=== PATIENT | female | born 1935 | race Caucasian/White ===

== ENCOUNTER → 2016-08-31 | Outpatient (CLI) | payer BC ==
[~2016-08-31] MED LIST: ACET-1256 PO; ACET325T82 PO; ALBINS/ INH; ALCA0.25 OPB; ALUM-76 PO; AMLO-114 PO; ASPI1TAB83 PO; BACTROBAN; BENZ1CAP90 PO; BISA10SU7 PR; BUDE1SUS INH; CALC500C3 PO; CHLL; COEN100C7 PO; DEXL60CA4 PO; DEXTLIQ; DEXTSYP29 PO; DICL1GEL34 TOP; FERR325T51 PO; FEXO1TAB49 PO; FURO-85 PO; GLIP-197 PO; GLIP-199 PO; GLYCDRO6 OPB; IMD/2 PO; INSDGI SC; IPRA1AER2 INH; METF500T PO; METO-217 PO; METO25TA3 PO; MISC4CAP PO; MOMLX; MONT1TAB3 PO; MRP5 PO; OLOP1DRO OPB; OXYC7.5T62 PO; POTA10CA28 PO; PRAMIPEXOLE PO; PSYL55.43 PO; RANI300T2 PO; ROSU5TAB PO; SENN8.6T9 PO; SERT50TA PO; SITA50TA3 PO; SPIR25TA PO; SYMIN INH; TRAM-10 PO; VALS320T PO; ZNTT/150 PO; [UNRECOGNIZED DRUG - CODE] OPB; [UNRECOGNIZED DRUG - CODE] PR; [UNRECOGNIZED DRUG - OTHER]; nystatin powder
[2016-08-31 10:13] LABS: HEMATOCRIT 39.3 % (37-47); MEAN CELL VOLUME 89.9 fL (80-100); MEAN CORPUSCULAR HEMOGLOBIN 28.6 pg (25-34); MEAN CORPUSCULAR HGB CONC 31.8 g/dl (32-36); PLATELET COUNT 305 K/uL (130-400); RED BLOOD COUNT 4.37 M/uL (4.2-5.4); WHITE BLOOD COUNT 7.86 K/uL (4.8-10.8)
== END | disposition home or self-care (01) ==
LOC: C.LABFOXDH 10:00
PROVIDERS: ATTEND Internal Medicine
DX: D53.9 Nutritional anemia, unspecified (principal)

== ENCOUNTER → 2016-11-06 | Outpatient (CLI) | payer BC ==
[2016-11-06 08:15] LABS: BASO % 0.4 %; BASO ABS # 0.04 K/uL (0-0.2); COMPLETE YES; EOS % 4.7 %; HEMATOCRIT 38.1 % (37-47); IG% 0.3 %; LYMPH % 13.4 %; LYMPH ABS # 1.31 K/uL (1.2-3.4); MEAN CELL VOLUME 90.9 fL (80-100); MEAN CORPUSCULAR HEMOGLOBIN 29.1 pg (25-34); MEAN PLATELET VOLUME 9.8 fL (7.4-10.4); MONO % 13.5 %; NEUT % 67.7 %; PLATELET COUNT 232 K/uL (130-400); RED BLOOD COUNT 4.19 M/uL (4.2-5.4); WHITE BLOOD COUNT 9.76 K/uL (4.8-10.8)
[2016-11-06 08:24] LABS: ALT/SGPT 18 U/L (12-78); BLOOD UREA NITROGEN 13 mg/dl (7-18); BUN/CREATININE RATIO 13.3 (10-20); CALCIUM 9.1 mg/dl (8.5-10.1); CARBON DIOXIDE 24 mmol/L (21-32); CHLORIDE 105 mmol/L (98-107); GLUCOSE 192 mg/dl (70-99); POTASSIUM 4.5 mmol/L (3.5-5.1); SODIUM 140 mmol/L (136-145)
[2016-11-06 08:26] LABS: ALB/GLOB RATIO 0.9 (0.9-2); ALKALINE PHOSPHATASE 90 U/L (45-117); AST/SGOT 9 U/L (15-37)
== END | disposition home or self-care (01) ==
LOC: C.LABFOXDH 07:58
PROVIDERS: ATTEND Internal Medicine
DX: R10.84 Generalized abdominal pain (principal)

== ENCOUNTER → 2016-11-26 | Outpatient (CLI) | payer BC ==
[~2016-11-26] MED LIST changes: +OPTIRAY 320 IV PRN
--- NOTE | 2016-11-26 14:10 | DIAGNOSTIC IMAGING REPORT ---
CT OF THE ABDOMEN AND PELVIS WITH CONTRAST CLINICAL HISTORY: Bilateral lower quadrant abdominal pain. COMPARISON STUDY: CT of the abdomen and pelvis January 08, 2012 and renal ultrasound January 07, 2015. TECHNIQUE: Following IV administration of 90 mL of Optiray-320, axial images of the abdomen and pelvis were obtained from the lung bases to the proximal femurs. Images were reviewed in the axial, sagittal, and coronal planes. IV contrast was administered without complication. Oral contrast was administered. CT DOSE: 1699.73 mGy.cm FINDINGS: The visualized portions of the lower chest demonstrate moderate cardiomegaly and extensive coronary artery calcification. There is a small hiatal hernia. There is no pneumatosis, free air or portal venous gas. There is no biliary ductal dilatation status post cholecystectomy. Several bilateral renal cysts are noted. A few subcentimeter lesions are too small to characterize. There is no bowel obstruction. There is sigmoid diverticulosis. There is mild infiltration adjacent to the mid sigmoid colon. There is no free air or abscess. A small fat-containing umbilical hernia is noted. There is a suspected 4.4 cm fundal fibroid within the uterus. This is unchanged since exam of February 18, 2007. There is no lymphadenopathy. No suspicious skeletal lesions are identified. IMPRESSION: 1. Mild acute sigmoid diverticulitis. No free air or abscess. 2. Small hiatal hernia. 3. No change in a suspected 4.4 cm fundal fibroid. Electronically signed by: Ari Wade M.D. 11/26/2016 2:07 PM Dictated Date/Time: 11/26/2016 1:53 PM
== END | disposition home or self-care (01) ==
LOC: C.CTS 12:31
PROVIDERS: ATTEND Physician Assistant
DX: R10.31 Right lower quadrant pain (principal); R10.32 Left lower quadrant pain; K44.9 Diaphragmatic hernia without obstruction or gangrene

== ENCOUNTER → 2016-11-27 | Outpatient (CLI) | payer BC ==
[~2016-11-27] MED LIST changes: -OPTIRAY 320 IV PRN
[2016-11-27 12:34] LABS: BLOOD UREA NITROGEN 23 mg/dl (7-18); CALCIUM 9.3 mg/dl (8.5-10.1); CARBON DIOXIDE 21 mmol/L (21-32); CHLORIDE 104 mmol/L (98-107); GLUCOSE 164 mg/dl (70-99); POTASSIUM 4.8 mmol/L (3.5-5.1); SODIUM 135 mmol/L (136-145)
== END | disposition home or self-care (01) ==
LOC: C.LABFOXDH 11:58
PROVIDERS: ATTEND Nurse Practitioner Family
DX: E11.9 Type 2 diabetes mellitus without complications (principal)

== ENCOUNTER → 2017-02-08 | Day surgery (SDC) | payer BC ==
[2017-01-21 12:49] VITALS: Ht 152.4 cm; Wt 117.1 kg
--- NOTE | 2017-01-22 08:55 | PAT Medication Instructions ---
Service Date Jan 22, 2017. Current Home Medication List Acetaminophen (Tylenol), 500 MG PO QID Albuterol Sulf (Proventil 0.083% 2.5MG/3ML), 1 AMP INH QID PRN for Wheezing Alum & Mag Hydrox-Simethicone (Rulox), 30 ML PO DAILY PRN for Dyspepsia Amlodipine (Norvasc), 10 MG PO QAM Aspirin (Aspirin), 81 MG PO QAM Budesonide (Inhalation) (Pulmicort), 1 VIAL INH BID Budesonide/Formoterol Fumarate (Symbicort 160-4.5 Mcg/Act), 2 PUFFS INH BID Calcium Carbonate (Antacid) (Tums), 500 MG PO Q4H PRN for Indigestion Coenzyme Q10 (Ubidecarenone) (Coq10), 1 CAP PO QAM Dexlansoprazole (Dexilant), 60 MG PO QAM Dextromethorphan-Guaifenesin (Siltussin-Dm), 10 ML PO TID PRN for Cough Diclofenac Sodium (Topical) (Diclofenac Sodium), 4 GM TOP TID Ferrous Sulfate (Iron Supplement), 1 TAB PO BID Fexofenadine Hcl (Christine Allergy), 1 TAB PO QAM Furosemide (Lasix), 20 MG PO QAM Glipizide (Glipizide Er), 1 TAB PO BID Insulin Glargine (Lantus), 50 UNITS SC HS Metoprolol Succinate (Toprol Xl), 50 MG PO QAM Montelukast Sodium (Singulair), 10 MG PO QPM Olopatadine HCl (Pazeo), 1 DROP OPB QAM Potassium Chloride (Micro-K Ext Rel), 10 MEQ PO QPM Pramipexole Dihydrochloride (Pramipexole Dihydrochlori), 1 TAB PO QPM Probiotic Product (Align), 4 MG PO QAM Psyllium (Metamucil Powder), 1 PACK PO QAM Ranitidine (Zantac), 150 MG PO BID Rosuvastatin Calcium (Crestor), 5 MG PO QAM Sertraline (Zoloft), 75 MG PO QPM Sitagliptin (Januvia), 50 MG PO QPM Spironolactone (Aldactone), 25 MG PO QAM Tramadol (Ultram), 50 MG PO Q6H PRN for Pain Valsartan (Diovan), 320 MG PO QAM Medication Instructions For Your Scheduled Surgery Aspirin (Aspirin), 81 MG PO QAM (check with surgeon for instructions) Olopatadine HCl (Pazeo), 1 DROP OPB QAM (check with surgeon for instructions) - Hold the following medications 7 days prior to surgery: Coenzyme Q10 (Ubidecarenone) (Coq10), 1 CAP PO QAM - Hold the following medications evening prior to surgery: Pramipexole Dihydrochloride (Pramipexole Dihydrochlori), 1 TAB PO QPM - Hold the following medications the morning of surgery: Spironolactone (Aldactone), 25 MG PO QAM Probiotic Product (Align), 4 MG PO QAM Psyllium (Metamucil Powder), 1 PACK PO QAM Glipizide (Glipizide Er), 1 TAB PO BID Fexofenadine Hcl (Christine Allergy), 1 TAB PO QAM Furosemide (Lasix), 20 MG PO QAM Ferrous Sulfate (Iron Supplement), 1 TAB PO BID Diclofenac Sodium (Topical) (Diclofenac Sodium), 4 GM TOP TID Dextromethorphan-Guaifenesin (Siltussin-Dm), 10 ML PO TID PRN for Cough Calcium Carbonate (Antacid) (Tums), 500 MG PO Q4H PRN for Indigestion Alum & Mag Hydrox-Simethicone (Rulox), 30 ML PO DAILY PRN for Dyspepsia Valsartan (Diovan), 320 MG PO QAM - Take the following medications the morning of surgery with a sip of water: Tramadol (Ultram), 50 MG PO Q6H PRN for Pain (can take up to four hours prior to surgery if needed) Rosuvastatin Calcium (Crestor), 5 MG PO QAM Ranitidine (Zantac), 150 MG PO BID Metoprolol Succinate (Toprol Xl), 50 MG PO QAM Dexlansoprazole (Dexilant), 60 MG PO QAM Budesonide (Inhalation) (Pulmicort), 1 VIAL INH BID Budesonide/Formoterol Fumarate (Symbicort 160-4.5 Mcg/Act), 2 PUFFS INH BID Amlodipine (Norvasc), 10 MG PO QAM Acetaminophen (Tylenol), 500 MG PO QID (if needed) Albuterol Sulf (Proventil 0.083% 2.5MG/3ML), 1 AMP INH QID PRN for Wheezing ( if needed) - Take the following medications as scheduled the night before surgery: Tramadol (Ultram), 50 MG PO Q6H PRN for Pain Sertraline (Zoloft), 75 MG PO QPM Sitagliptin (Januvia), 50 MG PO QPM Ranitidine (Zantac), 150 MG PO BID Potassium Chloride (Micro-K Ext Rel), 10 MEQ PO QPM Montelukast Sodium (Singulair), 10 MG PO QPM Glipizide (Glipizide Er), 1 TAB PO BID Insulin Glargine (Lantus), 50 UNITS SC HS Ferrous Sulfate (Iron Supplement), 1 TAB PO BID Diclofenac Sodium (Topical) (Diclofenac Sodium), 4 GM TOP TID Dextromethorphan-Guaifenesin (Siltussin-Dm), 10 ML PO TID PRN for Cough Calcium Carbonate (Antacid) (Tums), 500 MG PO Q4H PRN for Indigestion Budesonide (Inhalation) (Pulmicort), 1 VIAL INH BID Budesonide/Formoterol Fumarate (Symbicort 160-4.5 Mcg/Act), 2 PUFFS INH BID Acetaminophen (Tylenol), 500 MG PO QID Albuterol Sulf (Proventil 0.083% 2.5MG/3ML), 1 AMP INH QID PRN for Wheezing Alum & Mag Hydrox-Simethicone (Rulox), 30 ML PO DAILY PRN for Dyspepsia If you have any questions please call us at [phone] or [phone] ( Alanis) or [phone]
[~2017-02-08] VITALS: Ht 152.4 cm; Wt 117.1 kg
[~2017-02-08] MED LIST changes: +500ML BSS 0.3ML EPI 1:1000PF IRRIG ONE; -ACET325T82 PO; +ACETAMINOPHEN 325 MG TAB PO PRN; -ALCA0.25 OPB; +AMVISC PLUS 0.8ML SYRINGE INT OCU ONE; +ATROPINE SULFATE 0.1 MG/ML 5ML SYR IV PRN; -BISA10SU7 PR; +BRIMONIDINE TART 0.2% OP SOLN PER DROP CHARGE ONE; +BSS FLUSH ONE; +ENDOCOAT 0.85ML SYRINGE INT OCU ONE; +EpHEDrine SULFATE INJ 50 MG/ML AMP IV PRN; +EpINEphrine INJ 1MG/ML AMP 1 MG/ML AMP ONE; +FENTANYL CITRATE INJ 50 MCG/1 ML 2 ML VIAL ONE; +LACTATED RINGER'S 1000ML 500 ML IV SCH; +LIDOCAINE 4% OP SOLN DROP CHARGE ONE; +LIDOCAINE 4% OP SOLN DROP CHARGE OPL SCH; +LIDOCAINE HCL 1% MPF 2 ML VIAL ONE; -METF500T PO; -METO25TA3 PO; +MIDAZOLAM HCL 1 MG/ML 2ML VIAL ONE; +MOXIFLOXACIN OPH SOLN PER DROP CHARGE ONE; +ONDANSETRON INJ 2 MG/ML 2 ML VIAL IV PRN; -OXYC7.5T62 PO; +POVIDONE-IODINE OP SOLN 30 ML BTL ONE; -PRAMIPEXOLE PO; +PROPARACAINE 0.5% OP SOLN PER DROP CHARGE OPL SCH; -RANI300T2 PO; +TOBRAMYCIN/DEXAMETHASONE OPH OINT PER APPLN CHARGE ONE; -[UNRECOGNIZED DRUG - CODE] OPB; -[UNRECOGNIZED DRUG - CODE] PR
[2017-02-08] MEDS: PHENYLEPHRINE HCL 2.5% OP SOLN PER DROP CHARGE OPL SCH ×2 (07:28→07:36)
[2017-02-08] MEDS: TROPICAMIDE 1% OP SOLN PER DROP CHARGE OPL SCH ×2 (07:29→07:37)
[2017-02-08] MEDS: CYCLOPENTOLATE HCL 1% OP SOLN PER DROP CHARGE OPL SCH ×2 (07:31→07:38)
[2017-02-08] MEDS: KETOROLAC 0.5% OP SOLN PER DROP CHARGE OPL SCH ×2 (07:33→07:39)
--- NOTE | 2017-02-08 07:33 | History & Physical Bridge - [place] ---
H&P Re-Evaluation Bridge Note: I have examined the patient, reviewed the History & Physical and in the interval since the performance of the History & Physical I have noted the following changes of clinical significance: No changes noted
[2017-02-08] MEDS: MOXIFLOXACIN OPH SOLN PER DROP CHARGE OPL SCH ×2 (07:34→07:43)
[2017-02-08 08:50] VITALS: TEMP 36.6
--- NOTE | 2017-02-08 08:51 | Discharge Instructions-SurgCtr ---
Discharge Instructions Date of Service Feb 08, 2017. Visit Reason for Visit: Left Cataract Discharge Discharge Diagnosis / Problem: cataract left eye Discharge Goals Goal(s): Improve function Activity Recommendations Activity Limitations: per Instructions/Follow-up section Lifting Limitations: no more than 5 pounds Anesthesia . Post Anesthesia Instructions: If you have had General Anesthesia or IV Sedation: * Do not drive today. * Resume driving when surgeon permits. * Do not make important decisions or sign legal documents today. * Call surgeon for: 1. Temperature elevations greater than 101 degrees F. 2. Uncontrollable pain. 3. Excessive bleeding. 4. Persistent nausea and vomiting. 5. Medication intolerance (nausea, vomiting or rash). * For nausea and vomiting use only clear liquids such as: tea, soda, bouillon until nausea subsides, then gradually increase diet as tolerated. * If you have any concerns or questions, call your surgeon's office. If physician is unavailable and it is an emergency, call 911 or go to the nearest emergency room. . Instructions / Follow-Up Instructions / Follow-Up ACTIVITY RECOMMENDATIONS: * Light activities * You may walk outside, read, watch television. * Mild irritation and blurred vision are common for the first few days, redness around the white part of the eye is common. MEDICATIONS: Resume previous medications unless instructed otherwise by your surgeon. Eye drops (today and tomorrow): Cipro - one drop in operative eye every 2 hours while awake Prednisolone 1% - one drop in operative eye every 2 hours while awake Ilevro - one drop operative eye 1 times daily SPECIAL CARE INSTRUCTIONS: * If any problems or concerns, please call Dr. Enrique's office at . * Keep plastic shield taped over eye to sleep at night. * Keep plastic shield taped over eye except to administer eye drops. * Keep plastic shield on until office visit the following day. FOLLOW UP VISIT: Follow-up with Dr. Enrique in the [place] office as scheduled. If not already scheduled, please call the office at . Diet Recommendations Home Diet: resume previous diet Procedures Procedures Performed: Left Cataract Phacoemulsification With Intraocular Lens Implant Pending Studies Studies pending at discharge: no Medical Emergencies . Who to Call and When: Medical Emergencies: If at any time you feel your situation is an emergency, please call 911 immediately. . Non-Emergent Contact Non-Emergency issues call your: Rocket Assembly Operator . . "Provider Documentation" section prepared by Kevin Enrique. .
--- NOTE | 2017-02-08 08:51 | [facility] Post Operative Brief Note ---
Immediate Operative Summary Operative Date Feb 08, 2017. Pre-Operative Diagnosis Cataract Left Eye Post-Operative Diagnosis Same Procedure(s) Performed Left Cataract Phacoemulsification With Intraocular Lens Implant Surgeon Dr. Enrique Dry Chain Puller Surgeon(s) None Estimated Blood Loss 0 Findings cataract left eye Specimens 0 Complication(s) None Disposition Recovery Room / PACU
--- NOTE | 2017-02-08 09:03 | OPERATIVE REPORT ---
DATE OF OPERATION: 02/08/2017 PREOPERATIVE DIAGNOSIS: Dense brunescent cataract, left eye. POSTOPERATIVE DIAGNOSIS: Same. PROCEDURE: Phacoemulsification cataract extraction with intraocular lens placement, left eye. SURGEON: Dr. Enrique. COMPLICATIONS: None. ESTIMATED BLOOD LOSS: None. ANESTHESIA: Topical with sedation. OPERATION AND FINDINGS: After informed consent was obtained in the holding area the patient was wheeled back to the Operating Room where cardiac monitoring leads and oxygen by nasal cannula was administered by Anesthesia. Gentle IV sedation was given, and the patient's left eye was prepped and draped in usual sterile fashion. A wire lid speculum was placed into the left eye and the operating microscope was swung into position. Using 0.12 forceps and a Supersharp blade a paracentesis port was made 3 o'clock hours away from the 3 o'clock position of patient's left eye. 1% non-preserved Lidocaine was then injected into the anterior chamber for anesthesia. A 2.2 mm keratotome blade was then used to make a shelved clear corneal incision at the 3 o'clock position of her left eye. Amvisc was injected into the anterior chamber and a cystotome and Utrata forceps were used to perform a curvilinear capsulorrhexis. BSS on a hydrodissection cannula was used to hydrodissect the lens nucleus away from the capsular bag. The phacoemulsification handpiece was then used in a stop and chop fashion to remove the lens nucleus. The irrigation and aspiration handpiece was then used to remove the residual cortical material. Amvisc was injected into the capsular bag and anterior chamber and a Bausch & Lomb MX60, 21.5 Diopter intraocular lens was injected into the capsular bag. Irrigation and aspiration handpiece was used to remove the residual viscoelastic material. The wounds were hydrated and noted to be watertight. The wire lid speculum was removed from the eye. Vigamox, Brimonidine, and TobraDex ointment were placed on the eye and it was shielded. It should be noted that EndoCoat was used extensively throughout the entire case to protect the cornea endothelium in this dense cataract patient. DISPOSITION: The patient tolerated the procedure well and was wheeled to the post anesthesia care unit in stable condition. I attest to the content of the Intraoperative Record and any orders documented therein. Any exceptions are noted below. I attest to the content of the Intraoperative Record and any orders documented therein. Any exception s are noted below.
[2017-02-08 09:14] VITALS: BP 131/76; PULSE 50; O2SAT 95
--- NOTE | 2017-02-08 09:25 | Anesthesia Progress Nt - [facility] ---
Anesthesia Post Op Note Date & Time Feb 08, 2017 at 09:24 Vital Signs Pain Intensity: 0 Vital Signs Past 12 Hours Date Time Temp Pulse Resp B/P (MAP) Pulse Ox O2 Delivery O2 Flow Rate FiO2 02/08/17 09:14 50 20 131/76 (94) 95 Room Air 02/08/17 08:50 36.6 56 22 123/58 (79) 94 Room Air 02/08/17 07:19 37.2 56 18 165/66 (99) 94 Room Air Notes Mental Status: alert / awake / arousable, participated in evaluation Pt Amnestic to Procedure: Yes Nausea / Vomiting: adequately controlled Pain: adequately controlled Airway Patency, RR, SpO2: stable & adequate BP & HR: stable & adequate Hydration State: stable & adequate Anesthetic Complications: no major complications apparent
== END | disposition home or self-care (01) ==
LOC: X.SURG 06:49
PROVIDERS: ATTEND Ophthalmology
DX: H25.12 Age-related nuclear cataract, left eye (principal); E11.36 Type 2 diabetes mellitus with diabetic cataract; E66.9 Obesity, unspecified; J45.909 Unspecified asthma, uncomplicated; Z88.0 Allergy status to penicillin; Z88.1 Allergy status to other antibiotic agents; Z88.2 Allergy status to sulfonamides; Z90.89 Acquired absence of other organs; Z90.49 Acquired absence of other specified parts of digestive tract; Z79.4 Long term (current) use of insulin

== ENCOUNTER → 2017-02-22 | Day surgery (SDC) | payer BC ==
[2017-02-19 11:23] VITALS: Ht 152.4 cm; Wt 117.3 kg
[~2017-02-22] VITALS: Ht 152.4 cm; Wt 117.3 kg
[~2017-02-22] MED LIST changes: -EpHEDrine SULFATE INJ 50 MG/ML AMP IV PRN; -LIDOCAINE 4% OP SOLN DROP CHARGE OPL SCH; +LIDOCAINE 4% OP SOLN DROP CHARGE OPR SCH; -ONDANSETRON INJ 2 MG/ML 2 ML VIAL IV PRN; -PROPARACAINE 0.5% OP SOLN PER DROP CHARGE OPL SCH; +PROPARACAINE 0.5% OP SOLN PER DROP CHARGE OPR SCH
[2017-02-22] MEDS: PHENYLEPHRINE HCL 2.5% OP SOLN PER DROP CHARGE OPR SCH ×2 (06:44→06:49)
[2017-02-22] MEDS: TROPICAMIDE 1% OP SOLN PER DROP CHARGE OPR SCH ×2 (06:45→06:50)
[2017-02-22] MEDS: CYCLOPENTOLATE HCL 1% OP SOLN PER DROP CHARGE OPR SCH ×2 (06:46→06:51)
[2017-02-22] MEDS: KETOROLAC 0.5% OP SOLN PER DROP CHARGE OPR SCH ×2 (06:47→06:52)
[2017-02-22] MEDS: MOXIFLOXACIN OPH SOLN PER DROP CHARGE OPR SCH ×2 (06:48→06:58)
--- NOTE | 2017-02-22 07:39 | Discharge Instructions-SurgCtr ---
Discharge Instructions Date of Service Feb 22, 2017. Visit Reason for Visit: Cataract Right Eye Discharge Discharge Diagnosis / Problem: cataract right eye Discharge Goals Goal(s): Improve function Activity Recommendations Activity Limitations: per Instructions/Follow-up section Lifting Limitations: no more than 5 pounds Anesthesia . Post Anesthesia Instructions: If you have had General Anesthesia or IV Sedation: * Do not drive today. * Resume driving when surgeon permits. * Do not make important decisions or sign legal documents today. * Call surgeon for: 1. Temperature elevations greater than 101 degrees F. 2. Uncontrollable pain. 3. Excessive bleeding. 4. Persistent nausea and vomiting. 5. Medication intolerance (nausea, vomiting or rash). * For nausea and vomiting use only clear liquids such as: tea, soda, bouillon until nausea subsides, then gradually increase diet as tolerated. * If you have any concerns or questions, call your surgeon's office. If physician is unavailable and it is an emergency, call 911 or go to the nearest emergency room. . Instructions / Follow-Up Instructions / Follow-Up ACTIVITY RECOMMENDATIONS: * Light activities * You may walk outside, read, watch television. * Mild irritation and blurred vision are common for the first few days, redness around the white part of the eye is common. MEDICATIONS: Resume previous medications unless instructed otherwise by your surgeon. Eye drops (today and tomorrow): Cipro - one drop in operative eye every 2 hours while awake Prednisolone 1% - one drop in operative eye every 2 hours while awake Ilevro - one drop operative eye 1 times daily SPECIAL CARE INSTRUCTIONS: * If any problems or concerns, please call Dr. Enrique's office at . * Keep plastic shield taped over eye to sleep at night. * Keep plastic shield taped over eye except to administer eye drops. * Keep plastic shield on until office visit the following day. FOLLOW UP VISIT: Follow-up with Dr. Enrique in the [place] office as scheduled. If not already scheduled, please call the office at . Diet Recommendations Home Diet: resume previous diet Procedures Procedures Performed: Right Cataract Phacoemulsification With Intraocular Lens Implant Pending Studies Studies pending at discharge: no Medical Emergencies . Who to Call and When: Medical Emergencies: If at any time you feel your situation is an emergency, please call 911 immediately. . Non-Emergent Contact Non-Emergency issues call your: Answering Service Operator . . "Provider Documentation" section prepared by Kevin Enrique. .
--- NOTE | 2017-02-22 07:40 | [facility] Post Operative Brief Note ---
Immediate Operative Summary Operative Date Feb 22, 2017. Pre-Operative Diagnosis Cataract Right Eye Post-Operative Diagnosis Same Procedure(s) Performed Right Cataract Phacoemulsification With Intraocular Lens Implant Surgeon Dr. Enrique Waiter/Waitress Captain Surgeon(s) None Estimated Blood Loss 0 Findings cataract right eye Specimens None Complication(s) None Disposition Recovery Room / PACU
[2017-02-22 07:41] VITALS: BP 157/76; PULSE 52; TEMP 36.6; O2SAT 95
--- NOTE | 2017-02-22 07:43 | [facility] Operative Report ---
Operative Report Operative Date Feb 22, 2017. Pre-Operative Diagnosis Cataract Right Eye Post-Operative Diagnosis Same Procedure(s) Performed Right Cataract Phacoemulsification With Intraocular Lens Implant Surgeon Dr. Enrique Investigator Surgeon(s) None Estimated Blood Loss 0 Findings cataract right eye Specimens None Drains none Anesthesia local with sedation Complication(s) None Disposition Recovery Room / PACU Implants B&L MX60 22.0 Indications decreased vision right eye Description of Procedure OPERATION AND FINDINGS: After informed consent was obtained in the holding area the patient was wheeled back to the operating room where cardiac monitoring leads and oxygen by nasal cannula was administered by Anesthesia. Gentle IV sedation was given, and the patient's left eye was prepped and draped in usual sterile fashion. A wire lid speculum was placed into the right eye and the operating microscope was swung into position. Using 0.12 forceps and a Supersharp blade a paracentesis port was made 3 o'clock hours away from the 9 o'clock position of the patient's right eye. 1% non-preserved Lidocaine was then injected into the anterior chamber for anesthesia. A 2.2 mm keratotome blade was then used to make a shelved clear corneal incision at the 9 o'clock position of her right eye. Amvisc was injected into the anterior chamber and a cystotome and Utrata forceps were used to perform a curvilinear capsulorrhexis. BSS on a hydrodissection cannula was used to hydrodissect the lens nucleus away from the capsular bag. The phacoemulsification handpiece was then used in a stop and chop fashion to remove the lens nucleus. The irrigation and aspiration handpiece was then used to remove the residual cortical material. Amvisc was injected into the capsular bag and anterior chamber and a Bausch & Lomb MX60 22.0 Diopter intraocular lens was injected into the capsular bag. Irrigation and aspiration handpiece was used to remove the residual viscoelastic material. The wounds were hydrated and noted to be watertight. The wire lid speculum was removed from the eye. Vigamox, Brimonidine, and TobraDex ointment were placed on the eye and it was shielded. It should be noted that EndoCoat was used extensively during the case to protect the cornea endothelium. DISPOSITION: The patient tolerated the procedure well and was wheeled to the post anesthesia care unit in stable condition. I attest to the content of the Intraoperative Record and any orders documented therein. Any exceptions are noted below. I attest to the content of the Intraoperative Record and any orders documented therein. Any exceptions are noted below.
--- NOTE | 2017-02-22 08:17 | Anesthesia Progress Nt - [facility] ---
Anesthesia Post Op Note Date & Time Feb 22, 2017 at 08:17 Vital Signs Pain Intensity: 0 Vital Signs Past 12 Hours Date Time Temp Pulse Resp B/P (MAP) Pulse Ox O2 Delivery O2 Flow Rate FiO2 02/22/17 07:41 36.6 52 20 157/76 (103) 95 Room Air Notes Mental Status: alert / awake / arousable, participated in evaluation Pt Amnestic to Procedure: Yes Nausea / Vomiting: adequately controlled Pain: adequately controlled Airway Patency, RR, SpO2: stable & adequate BP & HR: stable & adequate Hydration State: stable & adequate Anesthetic Complications: no major complications apparent
== END | disposition home or self-care (01) ==
LOC: X.SURG 06:25
PROVIDERS: ATTEND Ophthalmology
DX: H26.9 Unspecified cataract (principal); E11.36 Type 2 diabetes mellitus with diabetic cataract; I10 Essential (primary) hypertension; J45.909 Unspecified asthma, uncomplicated; Z90.89 Acquired absence of other organs; Z68.43 Body mass index [BMI] 50.0-59.9, adult; E66.9 Obesity, unspecified; F41.9 Anxiety disorder, unspecified; Z88.2 Allergy status to sulfonamides; Z88.0 Allergy status to penicillin; Z88.5 Allergy status to narcotic agent; Z88.1 Allergy status to other antibiotic agents

== ENCOUNTER → 2017-03-17 | Outpatient (CLI) | payer BC ==
[~2017-03-17] MED LIST changes: -500ML BSS 0.3ML EPI 1:1000PF IRRIG ONE; -ACETAMINOPHEN 325 MG TAB PO PRN; -AMVISC PLUS 0.8ML SYRINGE INT OCU ONE; -ATROPINE SULFATE 0.1 MG/ML 5ML SYR IV PRN; -BRIMONIDINE TART 0.2% OP SOLN PER DROP CHARGE ONE; -BSS FLUSH ONE; -ENDOCOAT 0.85ML SYRINGE INT OCU ONE; -EpINEphrine INJ 1MG/ML AMP 1 MG/ML AMP ONE; -FENTANYL CITRATE INJ 50 MCG/1 ML 2 ML VIAL ONE; -LACTATED RINGER'S 1000ML 500 ML IV SCH; -LIDOCAINE 4% OP SOLN DROP CHARGE ONE; -LIDOCAINE 4% OP SOLN DROP CHARGE OPR SCH; -LIDOCAINE HCL 1% MPF 2 ML VIAL ONE; -MIDAZOLAM HCL 1 MG/ML 2ML VIAL ONE; -MOXIFLOXACIN OPH SOLN PER DROP CHARGE ONE; -POVIDONE-IODINE OP SOLN 30 ML BTL ONE; -PROPARACAINE 0.5% OP SOLN PER DROP CHARGE OPR SCH; -TOBRAMYCIN/DEXAMETHASONE OPH OINT PER APPLN CHARGE ONE
[2017-03-17 09:45] LABS: BASO % 0.5 %; BASO ABS # 0.05 K/uL (0-0.2); COMPLETE YES; EOS % 6.7 %; HEMATOCRIT 39.2 % (37-47); IG% 0.1 %; LYMPH % 21.8 %; MEAN CORPUSCULAR HEMOGLOBIN 29.5 pg (25-34); MEAN CORPUSCULAR HGB CONC 31.4 g/dl (32-36); MEAN PLATELET VOLUME 10.1 fL (7.4-10.4); MONO % 9.7 %; NEUT % 61.2 %; PLATELET COUNT 265 K/uL (130-400); RED BLOOD COUNT 4.17 M/uL (4.2-5.4); WHITE BLOOD COUNT 9.17 K/uL (4.8-10.8)
[2017-03-17 09:51] LABS: INR 0.9 (0.9-1.1); PROTHROMBIN TIME (PATIENT) 9.8 SECONDS (9.0-12.0)
[2017-03-17 10:02] LABS: ALT/SGPT 18 U/L (12-78); AST/SGOT 7 U/L (15-37); BLOOD UREA NITROGEN 39 mg/dl (7-18); BUN/CREATININE RATIO 27.6 (10-20); CALCIUM 9.4 mg/dl (8.5-10.1); CARBON DIOXIDE 22 mmol/L (21-32); CHLORIDE 111 mmol/L (98-107); GLUCOSE 126 mg/dl (70-99); POTASSIUM 4.7 mmol/L (3.5-5.1); SODIUM 140 mmol/L (136-145)
[2017-03-17 10:03] LABS: ALB/GLOB RATIO 0.9 (0.9-2); ALKALINE PHOSPHATASE 81 U/L (45-117)
== END | disposition home or self-care (01) ==
LOC: C.LABFOXMH 09:03
PROVIDERS: ATTEND Internal Medicine Pulmonary Disease
DX: J45.909 Unspecified asthma, uncomplicated (principal); R05 Cough

== ENCOUNTER → 2017-03-17 | Outpatient (CLI) | payer BC ==
--- NOTE | 2017-03-17 13:02 | DIAGNOSTIC IMAGING REPORT ---
CT SCAN OF THE CHEST WITHOUT IV CONTRAST CLINICAL HISTORY: Asthmatic bronchitis. Cough. COMPARISON STUDY: Chest CT scans dated 05/25/2016 and 08/06/2014. TECHNIQUE: CT scan of the thorax was performed from the thoracic inlet to the upper abdomen. Images are reviewed in the axial, sagittal, and coronal planes. IV contrast was not administered for this examination as per the referring clinician. A dose lowering technique was utilized adhering to the principles of ALARA. CT DOSE: 918.27 mGy.cm FINDINGS: Thyroid: Imaged portions of the thyroid gland are normal in size and attenuation. Thoracic aorta: The thoracic aorta is normal in caliber and demonstrates standard 3-vessel arch anatomy. Heart: The heart is normal in size and without pericardial effusion. The coronary arteries are densely calcified. Lungs and pleural spaces: There is a small fat-containing Bochdalek hernia at the right lung base. Foci of scarring versus atelectasis are present at the right lung base. No airspace consolidation or pleural effusion is seen. The trachea and central airways are clear. Mediastinum: There is no mediastinal lymphadenopathy. Shayna: Not well assessed without IV contrast. Axillae: There is no axillary lymphadenopathy. Upper abdomen: There is a moderate to large hiatal hernia. Cholecystectomy clips are noted. The partially visualized kidneys demonstrate cortical atrophy. There is near complete fatty atrophy of the partially imaged pancreas. Skeletal structures: The skeletal structures are osteopenic. Arthritic change is present in the shoulders, right greater than left. Mild spondylotic change is seen in the thoracic spine. There are healed bilateral rib fractures. No lytic or blastic bony lesions are seen. IMPRESSION: 1. There is no airspace consolidation or pleural effusion. 2. Moderate to large hiatal hernia. Electronically signed by: Urbano Olivera M.D. 03/17/2017 1:01 PM Dictated Date/Time: 03/17/2017 12:51 PM
--- NOTE | 2017-03-17 14:02 | DIAGNOSTIC IMAGING REPORT ---
PARANASAL SINUSES 4 VIEWS CLINICAL HISTORY: Asthmatic bronchitis. Cough. FINDINGS: 4 views of the paranasal sinuses are obtained. Correlation is made with CT of the brain dated 01/08/2012. The skeletal structures are osteopenic. There is no radiographic evidence of paranasal sinus disease. The mastoid air cells are clear as imaged. The bony orbits are intact as visualized. The imaged calvarium appears preserved. IMPRESSION: There is no radiographic evidence of paranasal sinus disease. Electronically signed by: Urbano Olivera M.D. 03/17/2017 2:01 PM Dictated Date/Time: 03/17/2017 2:00 PM
== END | disposition home or self-care (01) ==
LOC: C.CTS 12:32
PROVIDERS: ATTEND Internal Medicine Pulmonary Disease
DX: J45.909 Unspecified asthma, uncomplicated (principal); R05 Cough; K44.9 Diaphragmatic hernia without obstruction or gangrene

== ENCOUNTER → 2017-03-24 | Outpatient (CLI) | payer BC ==
[2017-03-24 08:50] LABS: HEMATOCRIT 38.2 % (37-47); MEAN CELL VOLUME 94.8 fL (80-100); MEAN CORPUSCULAR HEMOGLOBIN 30.3 pg (25-34); MEAN CORPUSCULAR HGB CONC 31.9 g/dl (32-36); MEAN PLATELET VOLUME 9.9 fL (7.4-10.4); PLATELET COUNT 280 K/uL (130-400); RED BLOOD COUNT 4.03 M/uL (4.2-5.4); WHITE BLOOD COUNT 8.54 K/uL (4.8-10.8)
[2017-03-24 09:00] LABS: BLOOD UREA NITROGEN 37 mg/dl (7-18); BUN/CREATININE RATIO 24.5 (10-20); CALCIUM 9.1 mg/dl (8.5-10.1); CARBON DIOXIDE 24 mmol/L (21-32); CHLORIDE 111 mmol/L (98-107); GLUCOSE 66 mg/dl (70-99); POTASSIUM 4.6 mmol/L (3.5-5.1); SODIUM 141 mmol/L (136-145)
--- NOTE | 2017-04-05 12:31 | CODING QUERY MEDICAL NECESSITY ---
CQSUPPORTING DIAGNOSIS NEEDED A supporting diagnosis is required for the test/procedure performed on this patient in order for us to be reimbursed by the patient's insurance. Please provide a supporting diagnosis for the following test/procedure listed below next to the test name along with your signature. *If there is no additional diagnosis for this patient that would support the following test/procedure please document that below next to the test/procedure. Test(s)/Procedure(s) that require a supporting diagnosis: DOS 03/24/17 VITAMIN B12 TEST Provider Signature: Date: Thank you Svetlana Ahmadi Health Information Management Once completed, please kindly fax back to [phone] For questions please call [phone]
== END | disposition home or self-care (01) ==
LOC: C.LABFOXMH 08:25
PROVIDERS: ATTEND Internal Medicine
DX: R53.1 Weakness (principal); R25.2 Cramp and spasm; R53.83 Other fatigue

== ENCOUNTER → 2017-03-25 | Outpatient (CLI) | payer BC ==
[2017-03-25 09:06] LABS: ALT/SGPT 18 U/L (12-78); BLOOD UREA NITROGEN 39 mg/dl (7-18); BUN/CREATININE RATIO 24.1 (10-20); CARBON DIOXIDE 25 mmol/L (21-32); CHLORIDE 111 mmol/L (98-107); GLUCOSE 134 mg/dl (70-99); POTASSIUM 4.9 mmol/L (3.5-5.1); SODIUM 140 mmol/L (136-145)
[2017-03-25 09:09] LABS: ALB/GLOB RATIO 0.9 (0.9-2); ALKALINE PHOSPHATASE 74 U/L (45-117); AST/SGOT 18 U/L (15-37)
== END | disposition home or self-care (01) ==
LOC: C.LABFOXDH 08:21
PROVIDERS: ATTEND Internal Medicine Hospice and Palliative Medicine
DX: J45.909 Unspecified asthma, uncomplicated (principal); R05 Cough

== ENCOUNTER 2017-03-29 07:32 | Day surgery (SDC) | payer BC ==
[~2017-03-29] VITALS: Ht 152.4 cm; Wt 119.0 kg
[2017-03-29] VITALS (13 sets, daily range): BP systolic 113–164; BP diastolic 36–84; PULSE 55–63; TEMP 36.5–37; O2SAT 93–100; Ht 152.4 cm; Wt 119.0 kg
[~2017-03-29 07:32] MED LIST changes: -BACTROBAN; -BENZ1CAP90 PO; -CHLL; -DEXTLIQ; -GLIP-197 PO; -GLYCDRO6 OPB; -IMD/2 PO; -IPRA1AER2 INH; -MOMLX; -SENN8.6T9 PO; -[UNRECOGNIZED DRUG - OTHER]; -nystatin powder
[2017-03-29] MEDS ORDERED: MIDAZOLAM HCL 5 MG/ML 2ML VIAL IV ONE (07:33)
[2017-03-29] MEDS ORDERED: LEVALBUTEROL 1.25MG/3ML NEB INH ONE (07:33)
[2017-03-29] MEDS ORDERED: FENTANYL CITRATE 100 MCG 2 ML CARP IV ONE (07:33)
--- NOTE | 2017-03-29 07:57 | Procedure Note ---
Pre-Mod Sedation Assessment General Date of Moderate Sedation: Mar 29, 2017. Pre-Sedation Airway Assessment Smoking Status: Never Smoker Mallampati Classification: Class I ASA Classification: Class I Procedure Planning Contraindications-for Mod Sed: None Yes Notes The planned sedation has been discussed with the patient and consent obtained. I have identified the patient, determined the appropriateness of sedation and have assessed the patient immediately prior to the procedure. All medicine(s) and interventions are by my order.
--- NOTE | 2017-03-29 08:04 | Discharge Instructions ---
Discharge Instructions Date of Service Mar 29, 2017. Admission Reason for Admission: Bronchitis And Cough Discharge Discharge Diagnosis / Problem: Chronic Asthmatic Bronchitis Discharge Goals Goal(s): Improve function, Learn about illness, Therapeutic intervention Activity Recommendations Activity Limitations: resume your previous activity Lifting Limitations: none Exercise/Sports Limitations: none May Resume Sexual Activity: when tolerated Shower/Bathe: no limitations Driving or Machine Use: resume 1 day after discharge None . Current Hospital Diet Patient's current hospital diet: Discharge Diet Recommended Diet: Regular Diet Fluid Restriction: None Pending Studies Studies pending at discharge: no Medical Emergencies . Who to Call and When: Medical Emergencies: If at any time you feel your situation is an emergency, please call 911 immediately. . Non-Emergent Contact Non-Emergency issues call your: High School Music Instructor Call Non-Emergent contact if: temperature is above 101, your pain is not controlled, you have any medication questions ACTIVITY RECOMMENDATIONS: * Rest today, resume normal activity tomorrow. * Do not drive today. SPECIAL CARE INSTRUCTIONS: * Call your physician if you experience any chest or shoulder pain, fever, coughing, spitting up blood (more than 2 teaspoons) or excessive shortness of breath. * Remove dressing from IV site (where needle was placed into the vein) after 2 hours. Apply a warm, moist compress to site if irritation occurs. Call physician if site becomes red or painful to touch. FOLLOW UP VISIT: * Keep any scheduled doctor appointments. . . "Provider Documentation" section prepared by Ryan Martinez. . VTE Core Measure Inpt VTE Proph given/why not?: Treatment not indicated [place] Drug Monitoring Program Drug Monitoring Findings: ACTIVITY RECOMMENDATIONS: * Rest today, resume normal activity tomorrow. * Do not drive today. SPECIAL CARE INSTRUCTIONS: * Call your physician if you experience any chest or shoulder pain, fever, coughing, spitting up blood (more than 2 teaspoons) or excessive shortness of breath. * Remove dressing from IV site (where needle was placed into the vein) after 2 hours. Apply a warm, moist compress to site if irritation occurs. Call physician if site becomes red or painful to touch. FOLLOW UP VISIT: * Keep any scheduled doctor appointments.
[2017-03-29] MEDS ORDERED: GLYCDRO6 OPB (08:33)
[2017-03-29] MEDS ORDERED: IPRA1AER2 INH (09:07)
[2017-03-29] MEDS ORDERED: CHLL (09:07)
[2017-03-29] MEDS ORDERED: GLIP-197 PO (09:21)
[2017-03-29] MEDS ORDERED: BENZ1CAP90 PO (09:21)
[2017-03-29] MEDS ORDERED: MOMLX (09:21)
[2017-03-29] MEDS ORDERED: SENN8.6T9 PO (09:21)
[2017-03-29] MEDS ORDERED: DEXTLIQ (09:21)
[2017-03-29] MEDS ORDERED: IMD/2 PO (09:21)
[2017-03-29] MEDS ORDERED: [UNRECOGNIZED DRUG - OTHER] (09:21)
[2017-03-29] MEDS ORDERED: nystatin powder (09:21)
[2017-03-29] MEDS ORDERED: BACTROBAN (09:22)
[2017-03-29] MEDS ORDERED: NURSING VERBAL MED ORDER ONE (12:45)
[2017-03-29] MEDS ORDERED: FENTANYL CITRATE INJ 50 MCG/1 ML 2 ML VIAL IV SCH (13:00)
[2017-03-29] MEDS ORDERED: MIDAZOLAM HCL 1 MG/ML 2ML VIAL IV ONE (13:00)
--- NOTE | 2017-03-29 13:45 | OPERATIVE REPORT ---
DATE OF OPERATION: 03/29/2017 TIME: 0900. PROCEDURE: Fiberoptic bronchoscopy with bronchoalveolar lavage. INDICATIONS: Persistent chest congestion/chronic cough refractory to outpatient therapy. ANESTHESIA PREOPERATIVELY: None. ANESTHESIA DURING PROCEDURE: 50 mcg IV fentanyl, 5 mg of IV Versed, 20 mL of 2% Xylocaine spray above and below the cords, 4% viscous Xylocaine intranasally. PROCEDURE NOTE: Fiberoptic bronchoscope was inserted into the right naris with minimal difficulty and passed to the level of the true vocal cords. Cords appeared to approximate normally with phonation without evidence of lesions or paralysis. The scope was then introduced in the trachea and right and left tracheobronchial tree. The maik was sharp. The right main stem bronchus was found to be free of endobronchial lesions. The right upper lobe, the apical posterior, anterior segments, bronchus intermedius, right middle lobe, medial and lateral segments and all basilar segments of right lower lobe were found to be free of endobronchial lesions with a moderate amount of mucopurulent secretion lavaged from right lower lobe until clear. Left tracheobronchial tree was explored and no endobronchial lesion was seen. Left upper lobe, lingular subdivision and left lower lobe were free of endobronchial lesions down to the subsegmental bronchi with the same amount of copious mucopurulent secretion lavaged from left lower lobe until clear. Bronchial crypts and clefts were seen throughout the left and right tracheobronchial tree with moderate global inflammatory mucosal change, all consistent with diagnosis of chronic bronchitis. No brushings or biopsies were deemed necessary. Fluoroscopy was not utilized. The procedure was terminated. The patient was given a nebulizer treatment with Xopenex 1.25 mg and then transferred to the medical treatment unit hemodynamically stable with no signs of respiratory compromise. Will await microbiological and cytologic examination of the bronchial washings. I attest to the content of the Intraoperative Record and any orders documented therein. Any exception s are noted below.
[2017-03-31 11:03] LABS: HERPES SIMPLEX CULT SOURCE OTHER-RLL BRONC WASH; HERPES SIMPLEX VIRUS CULT NOT ISOLATED (NOT ISOLATED)
== END 2017-03-29 12:30 | disposition home or self-care (01) ==
LOC: C.ACU 07:32
PROVIDERS: ATTEND Internal Medicine Pulmonary Disease
DX: R09.89 Other specified symptoms and signs involving the circulatory and respiratory systems (principal); R05 Cough; I25.10 Atherosclerotic heart disease of native coronary artery without angina pectoris; I42.9 Cardiomyopathy, unspecified; I51.81 Takotsubo syndrome; I10 Essential (primary) hypertension; E78.5 Hyperlipidemia, unspecified; E11.9 Type 2 diabetes mellitus without complications; G47.33 Obstructive sleep apnea (adult) (pediatric); J45.909 Unspecified asthma, uncomplicated; K21.9 Gastro-esophageal reflux disease without esophagitis; K58.9 Irritable bowel syndrome, unspecified; D64.9 Anemia, unspecified; G25.81 Restless legs syndrome; Z79.4 Long term (current) use of insulin; Z79.82 Long term (current) use of aspirin; Z79.899 Other long term (current) drug therapy

== ENCOUNTER → 2017-04-01 | Outpatient (CLI) | payer BC ==
[~2017-04-01] MED LIST changes: +BACTROBAN; +BENZ1CAP90 PO; +CHLL; +GLIP-197 PO; +GLYCDRO6 OPB; +IMD/2 PO; +IPRA1AER2 INH; +MOMLX; -MONT1TAB3 PO; +SENN8.6T9 PO; +[UNRECOGNIZED DRUG - OTHER]; +nystatin powder
[2017-04-01 10:04] LABS: BLOOD UREA NITROGEN 25 mg/dl (7-18); BUN/CREATININE RATIO 18.1 (10-20); CALCIUM 8.9 mg/dl (8.5-10.1); CARBON DIOXIDE 23 mmol/L (21-32); CHLORIDE 113 mmol/L (98-107); GLUCOSE 116 mg/dl (70-99); POTASSIUM 4.5 mmol/L (3.5-5.1); SODIUM 142 mmol/L (136-145)
== END | disposition home or self-care (01) ==
LOC: C.LABFOXDH 08:58
PROVIDERS: ATTEND Internal Medicine
DX: I50.9 Heart failure, unspecified (principal)

== ENCOUNTER → 2017-04-20 | Outpatient (CLI) | payer BC ==
--- NOTE | 2017-05-14 12:54 | PULMONARY FUNCTION TEST ---
Based on ATS criteria. 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 LUNG VOLUMES: Reduced residual volume at 39%. DIFFUSION CAPACITY: Moderately reduced at 44%. INTERPRETATION: Suggestive of emphysema. Clinical correlation is required.
== END | disposition home or self-care (01) ==
LOC: C.RC 10:48
PROVIDERS: ATTEND Internal Medicine Pulmonary Disease
DX: J45.909 Unspecified asthma, uncomplicated (principal); R05 Cough

== ENCOUNTER → 2017-05-14 | Outpatient (CLI) | payer BC ==
[2017-05-14 12:38] LABS: BLOOD UREA NITROGEN 36 mg/dl (7-18); BUN/CREATININE RATIO 27.9 (10-20); CARBON DIOXIDE 24 mmol/L (21-32); CHLORIDE 111 mmol/L (98-107); GLUCOSE 91 mg/dl (70-99); MAGNESIUM 1.9 mg/dl (1.8-2.4); POTASSIUM 4.6 mmol/L (3.5-5.1); SODIUM 141 mmol/L (136-145)
== END | disposition home or self-care (01) ==
LOC: C.LABFOXMH 12:09
PROVIDERS: ATTEND Internal Medicine
DX: R25.2 Cramp and spasm (principal)

== ENCOUNTER → 2017-05-23 | Outpatient (CLI) | payer BC ==
--- NOTE | 2017-05-24 05:30 | PAP/PSG TECHNICIAN REPORT ---
[facility] Ecology Professor Polysomnogram Report Study name: None Report date: 05/24/2017 Study date: 05/23/2017 Referring Physician: Ryan Martinez MD Name: DEJAN MERAZ Interpreting Physician: Jaleel Gomes M.D. Date of : 1935 Ecology Professor: MELISSA Galo. Sex: Female Age: 82 StudyType: PSG Weight: 267 lbs Height: 82 years, Height 5' 1" Neck Circum:15.25inches BMI: 50.44 Medications: Lorazepam 0.5mg, Glipizide 10mg, Lantus, Metronidazole 500mg, Dexilant 60mg, Ranitidine 150mg, Metoprolol 25mg, Tylenol 325mg, Albuterol 2.5mg/3ml, Align 4mg, Christine-D , Antacid, ASA 81mg, Keenan-Carb Forte 1250mg, CoQ10, Crestor 5mg, Diclofenac gel, Ferrous Sulfate 325mg, Fexofenadine 180mg, Furosemide 20mg, Januvia 50mg, Loperamide 2mg, Mucinex, Nasonex 50mcg/act, Norvasc 10mg, Potassium, Potassium Chloride 10MEQ, Pramipexole Dihydrochloride 0.5mg, Senexon 8.6mg, Siltussin-DMSingulair 10mg, Spironolactone 25mg, Tessalon Perles, Tramadol 50mg, Valsartan 320mg, Zoloft 50mg Patient History Study started on room air with no ETCO2 monitoring in room #6. 82 yr old female here tonight for a possible split psg if her AHI>10 and she has 2 hours of sleep by 1:30am. She had a diagnostic psg done here in 02/16/13 that had an AHI of 3.8. She has had a cough for the past year that interrupts her sleep. She has had 2 heart attacks in the past. She has diabetes. Her feet have edema in them tonight. She sleeps on her left side and goes to bed between 11pm and midnight and then sleeps in. Her ESS=3/21. Neck circ=15.25inches. Parameters Monitored NPSG: E1-M2, E2-M1, Fp1-M2, Fp2-M1, F3-M2, F4-M2, F4-M1, C3-M2, C4-M2, C4-M1, O1-M2, O2-M2, O2-M1, T3-M2, T4-M1, P3-M2, P4-M1, CHIN1, CHIN2, HR, EKG, Legs, PFLOW, SNOR, FLOW, CFLOW, Tidal Volume, THOR, ABDO, SpO2, PLTH, CPRESS, ETCO2 Wave, ETCO2, pH Sleep Architecture Sleep Stages Time at Lights Off 10:30:48 PM STAGES Time (min.) TST (%) Time at Lights On 5:22:18 AM Wake 58.0 -- Total Recording Time (TRT) 411.50 min. N1 13.0 4 Total Sleep Period (TSP) 407.0 min. N2 250.0 71 Total Sleep Time (TST) 353.5min. N3 50.5 14 Awake Time 58.0 min. REM 40.0 11 Wake after Sleep Onset 53.5 min. Sleep Efficiency (SE) 86 % Sleep Onset Latency (STEVE) 4.5 min. Number of Stage 1 Shifts None Awakenings 19 Stage Changes 73 Number of REM periods 1 REM 40.0 11 REM Latency 208.0 min. NREM 313.5 89 Body Position Analysis Supine Right Left Side Prone Vertical Total Sleep Time (min.) 2.4 0.0 353.5 353.50 0.0 0.0 Total Sleep Time (%) 0% 0% 100% 100 0% N/A% Total Sleep Time REM (min.) 0.0 0.0 40.0 None 0.0 0.0 Total Sleep Time NREM (min.) 0.0 0.0 313.5 None 0.0 0.0 Intermittent Wake (min.) 2.4 0.0 55.6 None 0.0 0.0 Total Sleep Period (%) 0% None None None None None Arousals Myoclonus (PLM) * Events Count Index Events Count Index Spontaneous 34 6 Events Awake (PLMW) 44 45.5 Respiratory 7 1.4 Events Asleep w/ Arousal (PLMA) 18 3.1 PLM 17 3 Events Asleep w/o Arousal (PLMS) 68 11.5 Snoring 6 1 Total Asleep 86 14.6 Total 64 11 Total 130 19 Respiratory Analysis * CA OA MA CH H RERA Total Count 0 1 0 0 57 1 58 Index 0.0 0.2 0.0 0 9.7 0 10.0 Mean Duration 0.0 14.0 0.0 0.00 20.2 29.0 20.2 Longest Duration 0.0 14.0 0.0 0.00 0.0 29.0 72.2 Respiratory Event Summary Total Supine ~Supine Right Left Prone REM NREM Apneas Count 1 N/A 1 N/A 1 N/A 0 1 Index 0.2 N/A 0 N/A 0.2 N/A 0 0 Hypopneas (4% Desat) Count 57 N/A 57 N/A 57 N/A 25 32 Index 9.7 N/A 10 N/A 9.7 N/A 37.5 6.1 Apneas & All Hypopneas Count 58 N/A 58 N/A 58 N/A 25 33 Index 9.8 N/A 10 N/A 10 N/A 37.5 6.3 Respiratory Events (Paster Hat Lining+All Hyp+RERA) Count 58 N/A 59 N/A 59 N/A 25 33 Index 10.0 N/A 10 N/A 10.0 N/A 37.5 6.5 Respiratory Related Arousal Count 7 N/A 8 N/A 8 N/A 0 8 Index 1.4 N/A 1 N/A 1 N/A 0 2 Snoring Analysis Supine Right Left Prone REM NREM Total Snore duration 29.1 min Snores count N/A N/A 1,540 N/A 86 1,454 1,540 Snore mean duration 1.1 Sec Snores index N/A N/A 261 N/A 129.0 278.3 261.4 TST with snoring (%) 8.2% Desaturation Event Summary: Minimum %SpO2 Event Count Mean/Min/Max Duration(sec.) Desaturation Index % Time In Bed > 90 30 29.9 / 8.5 / 53.0 71.7 6.4 86 - 90 73 27.7 / 8.5 / 55.8 13.2 84.7 81 - 85 0 N/A 0.0 8.9 76 - 80 0 N/A 0.0 0.0 71 - 75 0 N/A 0.0 0.0 66 - 70 0 N/A 0.0 0.0 61 - 65 0 N/A 0.0 0.0 56 - 60 0 N/A 0.0 0.0 51 - 55 0 N/A 0.0 0.0 < 50 0 N/A 0.0 0.0 Total REM NREM Awake <50% 0.0 min. 0.0 min. 0.0 min. 0.0 min. 51 - 60% 0.0 min. 0.0 min. 0.0 min. 0.0 min. 61 - 70% 0.0 min. 0.0 min. 0.0 min. 0.0 min. 71 - 80% 0.0 min. 0.0 min. 0.0 min. 0.0 min. 81 - 90% 365.6 min. 39.4 min. 302.2 min. 24.0 min. 91 - 100% 25.1 min. 0.6 min. 11.3 min. 13.2 min. Average 88 87 87 89 Minimum SpO2 81 81 83 83 Desaturation Event Index 11.2 36.0 9.4 4.1 # Desat. Events below 89% 77 24 49 4 Time(%) with Saturation below 89% 72.6 7.6 61.9 3.1 Time(min.) with Saturation below 89% 283.8 29.7 241.9 12.2 Time (mins) REM (mins) NREM (mins) % of TST SpO2 Below 90% 73 24 N49 90.7 SpO2 Below 88% 33 0 0 55 Heart Rate Analysis Min (bpm) Max (bpm) Average (bpm) Awake 31 64 55 NREM 49 69 52 REM 50 57 52 Overall 49 69 52 Supplemental O2 Values Minimum O2 level: None Value Start Time End Time Ecology Professor Comments Mrs. Meraz slept in the left position. No cardiac arrhythmia noted. Some leg movements were noted. No bruxism noted. Snoring was noted and scored as a 3 on a scale of 1 through 5. (0=no snoring, 5=snoring loud enough to be heard through a closed door or down the vera way) She awoke to use the restroom 2 times during the night. Her AHI was <10 at 1:30 am so she did not qualify for a split night study. She stated that she slept better than when at home. The final report will be interpreted and signed by a sleep physician. The completed physician report will then be placed in the patient medical record. Therapy (cm H2O) 0 TIB (min.) 411.5 TST (min.) 353.5 Sleep Onset (min.) 4.5 REM Onset From Sleep (min.) 208.0 Sleep Efficiency % 86 Wakefulness (%) 14 Wakefulness (min.) 58.0 NREM 1 (%) 4 NREM 1 (min.) 13.0 NREM 2 (%) 71 NREM 2 (min.) 250.0 NREM 3 (%) 14 NREM 3 (min.) 50.5 REM (%) 11 REM (min.) 40.0 # Arousals 64 Arousal Index 11 # Snore 1,540 Snore Index 261.4 AHI 9.8 AHI Supine N/A AHI Non-Supine 10 NREM AHI 6.3 REM AHI 37.5 RDI 10.0 # Obstructive Apnea 1 # Central Apnea 0 # Mixed Apnea 0 # Hypopneas 57 RERAs 1 Total Respiratory Events 60 Time Below SpO2 89% (min.) 271.6 Mean NREM SpO2 (%) 87 Mean REM SpO2 (%) 87 Mean Sleep SpO2 (%) 87 Min NREM SpO2 (%) 83 Min REM SpO2 (%) 81 Position Supine (min.) 2.4 Position Non-supine (min.) 353.5 LM Index Sleep 14.6 LM Index NREM 16.1 LM Index REM 3.0 Mean Heart Rate (bpm) 52 Min Heart Rate (bpm) 49
--- NOTE | 2017-05-25 10:42 | POLYSOMNOGRAPH REPORT ---
CLINICAL DATA: 82-year-old female with BMI of 50.[address] Ryan Martinez for a sleep study. She had a diagnostic sleep study done in 01/2013 which showed an AHI of 3.8. She has a cough at night that interrupts her sleep. She does have peripheral edema. Her [place] sleepiness score is 3/21. SLEEP ARCHITECTURE: Total sleep period was 407 minutes. Total sleep time was 353.5 minutes divided between 313.5 minutes of non-REM sleep and 40 minutes of REM sleep. Sleep onset latency was 4.5 minutes. REM latency was 208 minutes. Sleep efficiency was 86%. Wake after sleep onset was 53.5 minutes. Sleep consisted of stage N1 4%, stage N2 71% comes stage N3 14%, and REM 11%. AROUSAL DATA: 64 arousals were recorded for an index of 11 per hour. PLM DATA: 86 limb movements during sleep were noted for an index of 14.6 per hour with arousal index of 3.1 per hour. RESPIRATORY DATA: Mild sleep apnea was documented. The AHI was 9.8. There was 1 obstructive apneic episode, 14 seconds in duration. There were 57 hypopneic episodes with a mean duration of 20.2 seconds. OXIMETRY DATA: Nocturnal hypoxemia was seen. Oxygen [place] was 81% during REM. The mean saturation was 88%. Time below 88% was 33 minutes. EKG: Heart rates ranged from 49-69 beats per minute. No arrhythmias were noted. ENVIRONMENTAL SERVICES SPECIALIST'S COMMENTS: The patient slept in the left position. Snoring was moderate rated 3 on a scale of 1-5. She awoke twice to use the restroom. Her AHI did not reach 10 per hour or more early enough in the night to complete a split night study. IMPRESSION: Mild sleep apnea/hypopnea with an AHI of 9.8 with nocturnal hypoxemia. RECOMMENDATIONS: The patient may benefit from weight loss, a repeat sleep study CPAP, use of auto CPAP or possibly use of oxygen at night. Clinical correlation is needed. ANITHA
== END | disposition home or self-care (01) ==
LOC: C.NEUR 20:00
PROVIDERS: ATTEND Internal Medicine Pulmonary Disease
DX: G47.33 Obstructive sleep apnea (adult) (pediatric) (principal); R09.02 Hypoxemia

== ENCOUNTER → 2017-07-12 | Outpatient (CLI) | payer BC ==
[2017-07-12 08:19] LABS: ALT/SGPT 19 U/L (12-78); BLOOD UREA NITROGEN 43 mg/dl (7-18); BUN/CREATININE RATIO 24.4 (10-20); CALCIUM 8.9 mg/dl (8.5-10.1); CARBON DIOXIDE 22 mmol/L (21-32); CHLORIDE 109 mmol/L (98-107); CREATININE 1.77 mg/dl (0.60-1.20); GLUCOSE 108 mg/dl (70-99); MAGNESIUM 1.9 mg/dl (1.8-2.4); POTASSIUM 4.7 mmol/L (3.5-5.1); SODIUM 139 mmol/L (136-145)
[2017-07-12 08:22] LABS: ALB/GLOB RATIO 0.9 (0.9-2); ALKALINE PHOSPHATASE 75 U/L (45-117); AST/SGOT 10 U/L (15-37)
== END | disposition home or self-care (01) ==
LOC: C.LABFOXDH 07:49
PROVIDERS: ATTEND Internal Medicine Cardiovascular Disease
DX: I42.9 Cardiomyopathy, unspecified (principal); R06.00 Dyspnea, unspecified; R60.9 Edema, unspecified; I25.10 Atherosclerotic heart disease of native coronary artery without angina pectoris; I10 Essential (primary) hypertension; E88.09 Other disorders of plasma-protein metabolism, not elsewhere classified

== ENCOUNTER → 2017-08-11 | Outpatient (CLI) | payer BC ==
[2017-08-11 08:26] LABS: BLOOD UREA NITROGEN 51 mg/dl (7-18); CALCIUM 8.9 mg/dl (8.5-10.1); CARBON DIOXIDE 21 mmol/L (21-32); CREATININE 1.94 mg/dl (0.60-1.20); GLUCOSE 96 mg/dl (70-99); POTASSIUM 5.4 mmol/L (3.5-5.1); SODIUM 137 mmol/L (136-145)
== END | disposition home or self-care (01) ==
LOC: C.LABFOXDH 08:03
PROVIDERS: ATTEND Internal Medicine Hospice and Palliative Medicine
DX: Z01.89 Encounter for other specified special examinations (principal)

== ENCOUNTER → 2017-09-15 | Outpatient (CLI) | payer BC ==
[2017-09-15 08:47] LABS: HEMATOCRIT 37.6 % (37-47); MEAN CELL VOLUME 95.4 fL (80-100); MEAN CORPUSCULAR HEMOGLOBIN 30.5 pg (25-34); MEAN CORPUSCULAR HGB CONC 31.9 g/dl (32-36); MEAN PLATELET VOLUME 9.9 fL (7.4-10.4); PLATELET COUNT 242 K/uL (130-400); WHITE BLOOD COUNT 8.03 K/uL (4.8-10.8)
[2017-09-15 08:59] LABS: ALBUMIN 3.1 gm/dl (3.4-5.0); ALT/SGPT 18 U/L (12-78); AST/SGOT 12 U/L (15-37); BLOOD UREA NITROGEN 51 mg/dl (7-18); CALCIUM 9.4 mg/dl (8.5-10.1); CARBON DIOXIDE 18 mmol/L (21-32); CREATININE 2.25 mg/dl (0.60-1.20); GLUCOSE 83 mg/dl (70-99); POTASSIUM 5.5 mmol/L (3.5-5.1); SODIUM 137 mmol/L (136-145)
[2017-09-15 09:01] LABS: ALKALINE PHOSPHATASE 84 U/L (45-117); TOTAL PROTEIN 6.5 gm/dl (6.4-8.2)
== END | disposition home or self-care (01) ==
LOC: C.LABFOXDH 07:45
PROVIDERS: ATTEND Internal Medicine
DX: R11.0 Nausea (principal)

== ENCOUNTER → 2017-09-21 | Outpatient (CLI) | payer BC ==
[2017-09-21 10:00] LABS: BLOOD UREA NITROGEN 41 mg/dl (7-18); CALCIUM 8.9 mg/dl (8.5-10.1); CARBON DIOXIDE 22 mmol/L (21-32); CREATININE 1.64 mg/dl (0.60-1.20); GLUCOSE 84 mg/dl (70-99); POTASSIUM 5.2 mmol/L (3.5-5.1); SODIUM 139 mmol/L (136-145)
== END ==
LOC: C.LABFOXDH 09:31
PROVIDERS: ATTEND Nurse Practitioner Family
DX: N18.3 Chronic kidney disease, stage 3 (moderate) (principal)

== ENCOUNTER → 2017-09-22 | Outpatient (CLI) | payer BC ==
--- NOTE | 2017-09-22 11:52 | DIAGNOSTIC IMAGING REPORT ---
RETROPERITONEAL COMPLETE CLINICAL HISTORY: 82 years-old Female presenting with ACUTE KIDNEY FAILURE. TECHNIQUE: Real-time grayscale and limited color Doppler ultrasound imaging of the kidneys and bladder was performed. COMPARISON: CT from 11/26/2016 and ultrasound from 08/02/2015 and 01/07/2015. FINDINGS: Right kidney: Normal echogenicity though cortical thinning may be present. Right kidney measures 11.7 cm. No hydronephrosis. Anechoic 1.2 cm lesion consistent with simple cyst. Multiple additional cysts noted. Left kidney: Normal echogenicity though cortical thinning may be present. Left kidney measures 9.6 cm. No hydronephrosis. 8 mm hyperechogenic lesion unchanged from prior exam. Bladder: No bladder wall thickening. Bilateral ureteral jets not visualized. Other: None. IMPRESSION: 1. No hydronephrosis. 2. No abnormal renal echogenicity no cortical thinning may be present possibly indicating chronic medical renal disease. 3. 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 Electronically signed by: Giovani Dong M.D. 09/22/2017 11:51 AM Dictated Date/Time: 09/22/2017 11:46 AM
== END ==
LOC: C.ULTR 11:01
PROVIDERS: ATTEND Internal Medicine
DX: N17.9 Acute kidney failure, unspecified (principal)

== ENCOUNTER → 2017-09-28 | Outpatient (CLI) | payer BC ==
[~2017-09-28] MED LIST changes: +RANI150T85 PO; -ZNTT/150 PO
[2017-09-28 09:12] LABS: BLOOD UREA NITROGEN 37 mg/dl (7-18); CALCIUM 8.7 mg/dl (8.5-10.1); CARBON DIOXIDE 22 mmol/L (21-32); CREATININE 1.58 mg/dl (0.60-1.20); GLUCOSE 101 mg/dl (70-99); POTASSIUM 4.7 mmol/L (3.5-5.1); SODIUM 140 mmol/L (136-145)
== END | disposition home or self-care (01) ==
LOC: C.LABFOXDH 08:49
PROVIDERS: ATTEND Internal Medicine
DX: N18.3 Chronic kidney disease, stage 3 (moderate) (principal)

== ENCOUNTER → 2017-10-01 | Outpatient (CLI) | payer BC ==
[2017-10-01 08:47] LABS: BLOOD UREA NITROGEN 41 mg/dl (7-18); CALCIUM 8.9 mg/dl (8.5-10.1); CARBON DIOXIDE 22 mmol/L (21-32); CREATININE 1.57 mg/dl (0.60-1.20); GLUCOSE 63 mg/dl (70-99); POTASSIUM 4.3 mmol/L (3.5-5.1); SODIUM 140 mmol/L (136-145)
--- NOTE | 2017-10-12 08:52 | CODING QUERY NO DIAGNOSIS ---
: 1935 Valid Physician Order Needed A valid physician order must be submitted in order to properly bill for the service(s) provided, including date of service(s), valid diagnosis, and physician signature. If these tests are done on a recurring basis the original physician order must be submitted in order to code and bill for the service(s) provided. Please fax us the original, signed physician order so that we may expedite billing to [phone] DOS 10/01/2017 * Partial Renal Profile (No physician signature on lab form) Thank you Latanya Thakur [facility] Information Management
== END | disposition home or self-care (01) ==
LOC: C.LABFOXDH 07:59
PROVIDERS: ATTEND Internal Medicine
DX: N18.3 Chronic kidney disease, stage 3 (moderate) (principal)

== ENCOUNTER → 2017-10-20 | Outpatient (CLI) | payer BC ==
[2017-10-20 08:23] LABS: BASO % 0.3 %; BASO ABS # 0.03 K/uL (0-0.2); EOS % 4.4 %; EOS ABS # 0.39 K/uL (0-0.5); HEMATOCRIT 36.6 % (37-47); HEMOGLOBIN 11.1 g/dL (12.0-16.0); IG# 0.03 K/uL (0.00-0.02); LYMPH % 14.9 %; LYMPH ABS # 1.31 K/uL (1.2-3.4); MEAN CELL VOLUME 96.1 fL (80-100); MEAN CORPUSCULAR HEMOGLOBIN 29.1 pg (25-34); MEAN CORPUSCULAR HGB CONC 30.3 g/dl (32-36); MEAN PLATELET VOLUME 10.1 fL (7.4-10.4); MONO % 11.6 %; MONO ABS # 1.02 K/uL (0.11-0.59); NEUT % 68.5 %; NEUT ABS # 6.04 K/uL (1.4-6.5); PLATELET COUNT 265 K/uL (130-400); RED CELL DISTRIBUTION WIDTH SD 52.9 fL (36.4-46.3); WHITE BLOOD COUNT 8.82 K/uL (4.8-10.8)
[2017-10-20 08:34] LABS: ALT/SGPT 20 U/L (12-78); AST/SGOT 14 U/L (15-37); BLOOD UREA NITROGEN 20 mg/dl (7-18); CALCIUM 8.7 mg/dl (8.5-10.1); CARBON DIOXIDE 25 mmol/L (21-32); CREATININE 1.04 mg/dl (0.60-1.20); GLUCOSE 142 mg/dl (70-99); SODIUM 141 mmol/L (136-145)
[2017-10-20 08:38] LABS: ALKALINE PHOSPHATASE 77 U/L (45-117); TOTAL PROTEIN 6.3 gm/dl (6.4-8.2)
== END | disposition home or self-care (01) ==
LOC: C.LABFOXDH 08:04
PROVIDERS: ATTEND Internal Medicine
DX: R10.9 Unspecified abdominal pain (principal); R06.00 Dyspnea, unspecified

== ENCOUNTER → 2017-11-11 | Outpatient (CLI) | payer BC ==
--- NOTE | 2017-11-11 14:30 | DIAGNOSTIC IMAGING REPORT ---
ABDOMEN AND PELVIS CT WITH ORAL CONTRAST CT DOSE: 1723.76 mGy.cm HISTORY: Left lower quadrant abdominal pain. TECHNIQUE: Multiaxial CT images of the abdomen and pelvis were performed following the use of oral contrast. A dose lowering technique was utilized adhering to the principles of ALARA. COMPARISON STUDY: Abdomen and pelvis CT 11/26/2016. FINDINGS: A few linear scarlike densities at the lung bases. No pneumoperitoneum. No pneumatosis. No suspicious lytic or blastic osseous lesions. Moderate hiatus hernia, unchanged. Small fat-containing umbilical hernia. Stable 4 cm fundal fibroid. The ovaries are unremarkable. The bladder is completely decompressed. There is pelvic floor collapse. No pelvic free fluid. Colonic diverticulosis. No evidence for acute diverticulitis. No bowel wall thickening or obstruction. Normal appendix. Cholecystectomy. The unenhanced liver, pancreas, adrenal glands, and left kidney are unremarkable. Stable 1 cm hypodense lesion within the upper pole of the right kidney. No renal or ureteral calculi. No hydronephrosis. No retroperitoneal lymphadenopathy. IMPRESSION: 1. No bowel wall thickening or obstruction. 2. Colonic diverticulosis. No evidence for diverticulitis. 3. Moderate hiatus hernia, unchanged. 4. Cholecystectomy. 5. Normal appendix. Electronically signed by: Lokesh Colon M.D. 11/11/2017 2:29 PM Dictated Date/Time: 11/11/2017 2:20 PM
== END | disposition home or self-care (01) ==
LOC: C.CTS 13:22
PROVIDERS: ATTEND Internal Medicine
DX: R10.32 Left lower quadrant pain (principal); K57.30 Diverticulosis of large intestine without perforation or abscess without bleeding

== ENCOUNTER → 2017-12-15 | Outpatient (CLI) | payer BC ==
--- NOTE | 2017-12-15 15:31 | MAMMOGRAPHY REPORT ---
BILATERAL DIGITAL DIAGNOSTIC MAMMOGRAM TOMOSYNTHESIS WITH CAD AND TARGETED BILATERAL ULTRASOUND: 12/15 CLINICAL HISTORY: 82-year-old woman presents approximately 3 weeks after a fall with bruising noted i n the right breast. Now she feels a lump in the upper inner quadrant of the right breast which she r eports is where the area of bruising previously was, but it has since resolved. Also due for annual bilateral screening mammography. TECHNIQUE: Bilateral breast tomosynthesis in addition to standard 2D mammography was performed. Curr ent study was also evaluated with a Computer Aided Detection (CAD) system. COMPARISON: Comparison is made to exams dated: 04/19/2014 mammogram, 12/06/2012 mammogram, 06/16/2011 mammogram, 06/12/2010 mammogram, and 01/04/2006 mammogram - [facility]. BREAST COMPOSITION: There are scattered areas of fibroglandular density in both breasts. FINDINGS: A triangular palpable marker was placed on the skin of the upper inner right breast, denoti ng the area of palpable lump pointed out by the patient. In the area of palpable concern, best seen on the right CC view is a subtle oval mixed density 2.8 cm mass. Further characterization with ultras ound was performed. No other obvious new masses, asymmetries, areas of architectural distortion or miramontes spicious calcifications identified. There are benign round and rim calcifications and mild vascular c alcifications throughout the remainder of the visualized right breast. There is expected architectural distortion and surgical clips in the lateral left breast, at the site of prior benign excision. There is a 7 x 6 mm nodular asymmetry in the lateral anterior left breast in the CC projection, thought to project in the approximate 3:00 to 4:00 axis based on the MLO view. No other new suspicious masses, calcifications, asymmetries or areas of architectural distortion ar e identified in the left breast. Targeted ultrasound was performed in the area of palpable lump pointed out by the patient, in the 1:0 0 right breast, 10 cm from the nipple. On palpation, there is a firm 2 cm oval mass. No bruising is currently visualized targeted ultrasound performed over the area of palpable lump demonstrates a mix ed echogenicity echogenic and hypoechoic to anechoic. Solid and cystic mass just deep to the dermis. It measures approximately 2.5 x 1.1 x 2.9 cm and most likely represents an evolving hematoma or fat necrosis, particularly given the patient's clinical history of fall with bruising to the right upper inner breast. However, a very short follow-up right diagnostic mammogram and repeat targeted ultras ound is recommended to ensure stability and/or resolution in approximately 1-2 months. Targeted ultrasound was also performed throughout the lateral left breast in the area of nodular asym metry seen mammographically. Sonographically normal tissue is seen without a discrete solid or cysti c mass. Comparison was made back to all available prior mammograms to see if the nodular asymmetry m ay have been present. It was possibly seen on the 2012 exam although difficult to tell given differen t positioning of the breast and nipple. IMPRESSION: ACR-BI-RADS CATEGORY 3: PROBABLY BENIGN, TARGETED ULTRASOUND ACR-BI-RADS CATEGORY 3: PRO BABLY BENIGN 1. The palpable lump in the 1:00 right breast most likely represents an evolving hematoma and/or fat necrosis, measuring 2.8 cm in maximum dimension on ultrasound. A very short 1-2 month follow-up of the right breast including diagnostic tomosynthesis mammography and repeat targeted ultrasound is rec ommended to ensure stability and/or resolution. 2. There is a 7 x 6 mm nodular asymmetry in the lateral anterior left breast that may have been pres ent on prior mammograms but difficult to make exact comparison due to differences in positioning of t he left breast and nipple. No suspicious sonographic correlate was identified and although this coul d represent benign tissue or a benign cyst not seen on ultrasound, a short interval follow-up left di agnostic tomosynthesis mammogram and possible ultrasound is recommended to ensure stability in 6 emily hs. These results and recommendations were discussed with the patient at the time of the exam. Approximately 10% of breast cancers are not detected with mammography. A negative mammographic report should not delay biopsy if a clinically suggestive mass is present. Lauren Brownlee M.D. ay/:12/15/2017 12:56:33 Wetlands Conservation Laborer: Cristin Laura [facility] letter sent: Follow Up Recommended 3 BI-RADS Code: ACR-BI-RADS Category 3: Probably Benign Ultrasound BI-RADS: ACR-BI-RADS Category 3: Pr obably Benign
== END | disposition home or self-care (01) ==
LOC: C.MAMM 09:20
PROVIDERS: ATTEND Internal Medicine
DX: N64.89 Other specified disorders of breast (principal); N63.12 Unspecified lump in the right breast, upper inner quadrant

== ENCOUNTER → 2017-12-28 | Outpatient (CLI) | payer BC ==
[2017-12-28 09:44] LABS: HEMATOCRIT 38.2 % (37-47); HEMOGLOBIN 12.1 g/dL (12.0-16.0); MEAN CELL VOLUME 89.7 fL (80-100); MEAN CORPUSCULAR HEMOGLOBIN 28.4 pg (25-34); MEAN CORPUSCULAR HGB CONC 31.7 g/dl (32-36); PLATELET COUNT 247 K/uL (130-400); RED CELL DISTRIBUTION WIDTH SD 48.6 fL (36.4-46.3); WHITE BLOOD COUNT 8.53 K/uL (4.8-10.8)
[2017-12-28 10:03] LABS: BLOOD UREA NITROGEN 21 mg/dl (7-18); CALCIUM 8.6 mg/dl (8.5-10.1); CARBON DIOXIDE 26 mmol/L (21-32); CREATININE 1.12 mg/dl (0.60-1.20); GLUCOSE 148 mg/dl (70-99); POTASSIUM 3.9 mmol/L (3.5-5.1); SODIUM 139 mmol/L (136-145)
== END | disposition home or self-care (01) ==
LOC: C.LABFOXDH 09:05
PROVIDERS: ATTEND Internal Medicine
DX: R06.02 Shortness of breath (principal)